=== PATIENT | male | born 1990 | race Caucasian/White ===

== ENCOUNTER 2020-06-20 00:36 | Emergency (ER) | payer OTHER ==
--- NOTE | 2020-06-20 01:20 | ED ---
Alcohol HPI - General Chief Complaint: Alcohol Stated Complaint: ETOH Time Seen by Provider: 06/20/20 01:00 Source: patient, EMS Mode of arrival: EMS Limitations: altered mental status (Appears intoxicated) - History of Present Illness Initial Comments: This patient is 29-year-old man brought by first responders from a local hotel or motel. Patient reportedly had been wandering on scene and appeared to be intoxicated. When I interview the patient is denying complaints however does appear very intoxicated and not able to give much history. MD Complaint: alcohol intoxication Last Drink: unknown Associated Symptoms: denies other symptoms Review of Systems ROS Statement: Those systems with pertinent positive or pertinent negative responses have been documented in the HPI. ROS Other: All systems not noted in ROS Statement are negative. Limitations: ROS unobtainable due to patients medical condition (Intoxicated) Past Medical History Past Medical History: No Reported History History of Any Multi-Drug Resistant Organisms: None Reported Past Surgical History: No Surgical Hx Reported Past Psychological History: No Psychological Hx Reported Smoking Status: Unknown if ever smoked Past Alcohol Use History: None Reported Past Drug Use History: None Reported General Exam Limitations: no limitations General appearance: in no apparent distress, appears intoxicated Head exam: Present: atraumatic, normocephalic Neck exam: Present: normal inspection, full ROM. Absent: tenderness Respiratory exam: Present: normal lung sounds bilaterally. Absent: respiratory distress, wheezes, rales, rhonchi, stridor, chest wall tenderness Cardiovascular Exam: Present: regular rate, normal rhythm, normal heart sounds. Absent: systolic murmur, diastolic murmur, rubs, gallop GI/Abdominal exam: Present: soft. Absent: distended, tenderness, guarding, rebound Extremities exam: Present: normal inspection, full ROM, normal capillary refill. Absent: tenderness Back exam: Present: normal inspection. Absent: vertebral tenderness Neurological exam: Present: other (Patient saw one but arouses to tactile stimuli. GCS is 14 but suspect due to intoxication.) Skin exam: Present: warm, dry, intact, normal color. Absent: rash Course Vital Signs 06/20/20 00:40 Pulse Rate 76 Respiratory 16 Rate Blood Pressure 81/59 O2 Sat by Pulse 98 Oximetry Medical Decision Making - Lab Data Lab Results 06/20/20 Range/Units 03:44 Serum Alcohol 238 H* mg/dL Disposition Clinical Impression: Alcoholic intoxication Disposition: OTHER INSTITUTION NOT DEFINED Condition: Fair Instructions (If sedation given, give patient instructions): Alcohol Intoxication (ED) Is patient prescribed a controlled substance at d/c from ED?: No Referrals: None,Stated [Primary Care Provider] - 1-2 days - Out of Hospital Transfer - Req. Specs Out of Hospital Transfer - Requested Specifics: Other Non-Acute (Police custody)
--- NOTE | 2020-06-20 02:31 | CT ---
EXAM: CT Head Without Intravenous Contrast CLINICAL HISTORY: ITS.REASON CT Reason: altered mental status TECHNIQUE: Axial computed tomography images of the head/brain without intravenous contrast. CTDI is 49.27 mGy and DLP is 1217.4 mGy-cm. This CT exam was performed using one or more of the following dose reduction techniques: automated exposure control, adjustment of the mA and/or kV according to patient size, and/or use of iterative reconstruction technique. COMPARISON: No relevant prior studies available. FINDINGS: Brain: No acute intracranial abnormality. Minimal contrast seen within the cerebral vessels likely secondary to prior imaging study. Ventricles: Unremarkable. No ventriculomegaly. Bones/joints: Unremarkable. No acute calvarial fracture. Soft tissues: Unremarkable. Sinuses: Mild mucosal thickening of paranasal sinuses. Mastoid air cells: Unremarkable as visualized. IMPRESSION: No acute intracranial abnormality.
[2020-06-20 04:33] VITALS: BP 111/79; PULSE 80; RESP 18
== END 2020-06-20 05:58 | disposition other institution (70) ==
LOC: EC 00:36
DX: F10.129 Alcohol abuse with intoxication, unspecified (principal); Y90.8 Blood alcohol level of 240 mg/100 ml or more
CPT/HCPCS: 36415; 70450; 99285; G0480; 80320

== ENCOUNTER 2020-06-21 10:53 | Emergency (ER) | payer OTHER ==
[2020-06-21 11:12] VITALS: BP 131/68; RESP 18; TEMP 98
--- NOTE | 2020-06-21 11:38 | ED ---
Chest Pain HPI - General Chief Complaint: Chest Pain Stated Complaint: CHEST PAIN Time Seen by Provider: 06/21/20 11:18 Source: patient, EMS Mode of arrival: EMS Limitations: no limitations - History of Present Illness Initial Comments: Patient is a 29-year-old male that presents to emergency department via EMS from [facility] complaining of chest pain. He notes that he is in 10 out of 10 pain with no relief. He was laying in bed with his eyes closed sleeping relaxing in no apparent distress or pain. EMS noted that patient was mostly t ransferred to [facility] for a warrant and then started complaining of chest pain and that he wanted to ER. Patient is a multi-substance use or such as heroin and alcohol. Patient was artery asking if he could leave with his fiance got serious he is not a prisoner. Patient states that it feels like there is a softball lodged inside of his chest. He did not report any significant past medical history to me during the exam interview. He denied any shortness of breath headache nausea vomiting diarrhea constipation fever fatigue chills radiating pain. - Related Data Allergies Allergy/AdvReac Type Severity Reaction Status Date / Time No Known Allergies Allergy Verified 06/21/20 11:12 Review of Systems ROS Statement: Those systems with pertinent positive or pertinent negative responses have been documented in the HPI. ROS Other: All systems not noted in ROS Statement are negative. EKG Findings - EKG Comments: EKG Findings:: Ventricular rate 78 bpm, OH interval 140 ms, QRS duration 90 ms, QT/QTC 386/440 no seconds, PRT axes 52/78/21. Sinus rhythm with marked sinus arrhythmia, RSR or QR pattern in V1 suggest right ventricular conduction delay, borderline ECG. Past Medical History Past Medical History: No Reported History History of Any Multi-Drug Resistant Organisms: None Reported Past Surgical History: Heart Catheterization Past Psychological History: No Psychological Hx Reported Smoking Status: Current every day smoker Past Alcohol Use History: Abuse, Daily, Heavy Past Drug Use History: Heroin General Exam General appearance: alert, in no apparent distress Head exam: Present: atraumatic, normocephalic, normal inspection Eye exam: Present: normal appearance, PERRL, EOMI. Absent: scleral icterus, c onjunctival injection, periorbital swelling Neck exam: Present: normal inspection. Absent: tenderness, meningismus, lymphadenopathy Respiratory exam: Present: normal lung sounds bilaterally. Absent: respiratory distress, wheezes, rales, rhonchi, stridor Cardiovascular Exam: Present: regular rate, normal rhythm, normal heart sounds. Absent: systolic murmur, diastolic murmur, rubs, gallop, clicks GI/Abdominal exam: Present: soft, normal bowel sounds. Absent: distended, tenderness, guarding, rebound, rigid Extremities exam: Present: normal inspection, full ROM, normal capillary refill. Absent: tenderness, pedal edema, joint swelling, calf tenderness Neurological exam: Present: alert, oriented X3, CN II-XII intact Psychiatric exam: Present: normal affect, normal mood Skin exam: Present: warm, dry, intact, normal color. Absent: rash Course Vital Signs 06/21/20 11:03 Temperature 98 F Pulse Rate 95 Respiratory 18 Rate Blood Pressure 131/68 O2 Sat by Pulse 98 Oximetry Chest Pain MDM - MDM 29-year-old male complaining of chest pain transferred here from [facility] prior to his transfer to [facility] for work. Labs, EKG, monitor technician, chest x-ray ordered. Ventricular rate 78 bpm, OH interval 140 ms, QRS duration 90 ms, QT/QTC 386/440 no seconds, PRT axes 52/78/21. Sinus rhythm with marked sinus arrhythmia, RSR or QR pattern in V1 suggest right ventricular conduction delay, borderline ECG. Labs unremarkable. Patient was informed that it is recommended he stay in hospital and all labs and imaging ordered on. Patient got dressed saline were the bathroom and left the emergency room AGAINST MEDICAL ADVICE. Case discussed with Dr. Joselito Mccallum Criteria Clinical Symptoms of DVT: (0) No No Alternative Diagnosis: (0) No Immobilization of Surgery in Previous 4 Weeks: (0) No Previous DVT/PE: (0) No Hemoptysis: (0) No Malignancy: (0) No - PERC Rule Heart Rate < 100: (0) No No Prior History pf DVT/PE: (0) No No Recent Trauma or Surgery: (0) No Hemoptysis: (0) No No Exogenous Estrogen: (0) No No Clinical Signs Suggesting DVT: (0) No - СЕРГЕЙ Score Age > 65: (0) No Disposition Clinical Impression: Chest pain Disposition: Left Against Medical Advice Condition: Stable Instructions (If sedation given, give patient instructions): Chest Pain (ED) Is patient prescribed a controlled substance at d/c from ED?: No Referrals: None,Stated [Primary Care Provider] - 1-2 days Time of Disposition: 12:22
[2020-06-21 11:42] LABS: Basophils % (A) 0 %; Eosinophils # (A) 0.1 k/uL (0-0.7); Eosinophils % (A) 1 %; HCT 39.4 % (39.0-53.0); HGB 13.8 gm/dL (13.0-17.5); Lymphocytes # (A) 0.9 k/uL (1.0-4.8); Lymphocytes % (A) 11 %; MCH 32.4 pg (25.0-35.0); MCHC 34.9 g/dL (31.0-37.0); MCV 92.8 fL (80.0-100.0); Monocytes # (A) 0.2 k/uL (0-1.0); Monocytes % (A) 3 %; Neutrophils # (A) 6.8 k/uL (1.3-7.7); Neutrophils % (A) 86 %; Platelet Count 305 k/uL (150-450); RBC 4.24 m/uL (4.30-5.90); RDW 11.4 % (11.5-15.5)
[2020-06-21 11:50] LABS: ALT 52 U/L (4-49); AST 41 U/L (17-59); African American GFR (CKD) >90 (>60 ml/min/1.73 sqM); Albumin 3.7 g/dL (3.5-5.0); Alkaline Phosphatase 79 U/L (38-126); Anion Gap 9 mmol/L; Blood Urea Nitrogen 21 mg/dL (9-20); Calcium 8.8 mg/dL (8.4-10.2); Carbon Dioxide 24 mmol/L (22-30); Chloride 103 mmol/L (98-107); Glucose 113 mg/dL (74-99); Lipase 48 U/L (23-300); Magnesium 1.8 mg/dL (1.6-2.3); Non-African American GFR(CKD) >90 (>60 ml/min/1.73 sqM); Potassium 4.4 mmol/L (3.5-5.1); Sodium 136 mmol/L (137-145); Total Bilirubin 1.1 mg/dL (0.2-1.3); Total Protein 6.3 g/dL (6.3-8.2)
[2020-06-21 11:54] LABS: Partial Thromboplastin Time 23.6 sec (22.0-30.0); Prothrombin Time 10.6 sec (9.0-12.0)
[2020-06-21 12:27] VITALS: PULSE 75
--- NOTE | 2020-06-21 13:04 | XR ---
EXAMINATION TYPE: XR chest 2V DATE OF EXAM: 06/21/2020 COMPARISON: NONE TECHNIQUE: PA and lateral views submitted. HISTORY: Chest pain FINDINGS: The lungs are clear and there is no pneumothorax, pleural effusion, or focal pneumonia. Coarsened i nterstitium. Heart size normal. IMPRESSION: 1. Correlate for bronchitis or interstitial pneumonitis.
== END 2020-06-21 12:31 | disposition left against medical advice (07) ==
LOC: EC 10:53
DX: R07.9 Chest pain, unspecified (principal); Z53.29 Procedure and treatment not carried out because of patient's decision for other reasons; F17.200 Nicotine dependence, unspecified, uncomplicated
CPT/HCPCS: 36415; 71046; 80053; 83690; 83735; 83880; 84484; 85025; 85610; 85730; 93005; 99285